=== PATIENT | male | born 2000 | race Caucasian/White ===

== ENCOUNTER 2025-04-01 12:50 | Emergency (ER) | payer SELFPAY ==
--- NOTE | 2025-04-01 12:51 | XRR_ITS ---
PROCEDURE INFORMATION: Exam: XR Right Shoulder Exam date and time: 04/01/2025 1:12 PM Age: 24 years old Clinical indication: Injury or trauma; Fall; Blunt trauma (contusions or hematomas); Shoulder; Right TECHNIQUE: Imaging protocol: Radiologic exam of the right shoulder. Views: 2 or more views. COMPARISON: No relevant prior studies available. FINDINGS: Bones/joints: No acute fracture. No glenohumeral dislocation. Intact acromioclavicular joint. Soft tissues: Unremarkable. XR/XR shoulder RT min 2V* [id number] IMPRESSION: No acute findings.
[2025-04-01 13:08] VITALS: BP 126/58; PULSE 84; RESP 16; TEMP 36.9; O2SAT 98; BMI 34.9
--- NOTE | 2025-04-01 13:31 | ED_ITS ---
HPI - Extremity Problem General: Chief complaint: Extremity Injury, Upper Stated complaint: fall-right shoulder pain Time Seen by Provider: 04/01/25 13:29 Source: patient Mode of arrival: ambulatory Limitations: no limitations History of Present Illness: 24-year-old male states that he tripped over a wheel barrel yesterday landed on his right shoulder has been having right shoulder pain since then. It hurts worse with palpation and movement. He is able to lift his arm. He denies any other injuries denies hitting his head denies any neck pain. Related Data Previous Rx's ?Medication ?Instructions ?Recorded naproxen 500 mg tablet (Naprosyn) 500 mg PO BID PRN pa in #20 tabs 04/01/25 Allergies Allergy/AdvReac Type Severity Reaction Status Date / Time No Known Allergies Allergy Verified 04/01/25 13:11 Review of Systems Musc: Reports: extremity pain Physical Exam Const: COMMON NORMALS: no acute distress, patient oriented x3 and healthy appearing HENMT: COMMON NORMALS: normocephalic and atraumatic HEAD & SCALP: normocephalic and atraumatic Neck/C-Spine: COMMON NORMALS: full ROM and supple Chest: COMMONS NORMALS: normal inspection of the chest Resp: COMMON NORMALS: normal respiratory effort Cardio: COMMON NORMALS: regular rate RATE: regular rate Extremity: COMMON NORMALS: full ROM NARRATIVE EXTREMITY EXAM: Tenderness over right shoulder no obvious deformity Neuro: COMMON NORMALS: patient oriented x3, moves all extremities and no focal motor deficits Psych: COMMON NORMALS: mental status grossly normal, Normal thought process present and cooperative THOUGHT PROCESS: Normal thought process present Skin: COMMON NORMALS: no rashes or lesions noted and no wounds GENERAL SKIN EXAM: no rashes or lesions noted Course Vital Signs: Vital signs: Vital Signs Temperature 98.5 F 04/01/25 13:08 Pulse Rate 84 04/01/25 13:08 Respiratory Rate 16 04/01/25 13:08 Blood Pressure 126/58 04/01/25 13:08 Pulse Oximetry 98 04/01/25 13:08 MDM - Extremity (Nontraumatic) Medical Decision Making 24-year-old male presents here with a right shoulder injury. Differential includes shoulder dislocation, fracture, contusion. Exam here is benign x-ray interpreted by me showed no acute abnormalities no signs of dislocation or fracture. Patient is stable for discharge at this time we will give him follow- up orthopedics return if worsening. Lab Data Radiology Impressions Shoulder X-Ray 04/01/25 12:51 IMPRESSION: No acute findings. All radiology interpretation(s) finalized by discharge Discharge Plan Discharge Patient Disposition: Home Clinical Impression: Injury of right shoulder Condition: Stable Prescriptions: New naproxen [Naprosyn] 500 mg tablet 500 mg PO BID PRN (Reason: pain) Qty: 20 0RF Discharge Orders: Discharge ED (Routine); Ordered 04/01/25 Ordered By: Surjit Martins Referrals: Conor Wayne DO [Physician, Orthopedics] - 4-7 days Discharge Diet: Advance as tolerated Discharge Activity: Resume usual activity Patient Instructions: Shoulder Sprain (ED) Print Language: Tamazight Coding Level of Care Code ED Career Development Coordinator/Teacher for [employer]
[2025-04-01] MEDS: HYDROcodone-acetaminophen 5-325 mg Tablet 1 TAB PO (13:36)
--- NOTE | 2025-04-02 08:12 | DCPLANNER ---
messaged ortho for er f/u
== END 2025-04-01 13:37 | disposition home or self-care (01) ==
PROVIDERS: Emergency Provider Emergency Medicine
DX: S49.91XA Unspecified injury of right shoulder and upper arm, initial encounter (principal); W18.09XA Striking against other object with subsequent fall, initial encounter
CPT/HCPCS: 73030; 99283; J9999